=== PATIENT | male | born 2000 ===

== ENCOUNTER 2021-10-28 11:32 | Emergency (ER) | payer MEDICAID, SELFPAY ==
[2021-10-28 11:50] VITALS: BP 117/67; PULSE 57; RESP 16; TEMP 36.3; O2SAT 99; BMI 23.6
[2021-10-28] MEDS: Fluorescein Sodium STRIP 1 STRIP EYE-RIGHT (12:10)
[2021-10-28] MEDS: Tetracaine HCl/PF 0.5% Oph Sol 4 ML DROPS 3 DROP EYE-RIGHT (12:10)
--- NOTE | 2021-10-28 12:52 | ED_ITS ---
HPI - Eye Problem General Chief complaint: Eye Problems Stated complaint: scratched eye Time Seen by Provider: 10/28/21 12:01 Source: patient Mode of arrival: ambulatory History of Present Illness HPI Narrative: 21-year-old male with no significant past medical history presenting to the ED complaining of foreign body sensation to right eye with tearing, pain, and mild discharge since yesterday. 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 Denies wearing glasses or contacts. Denies vision loss/change, headache, trauma tab by/injury MD chief complaint: eye pain Onset (ago): day(s) Onset description: sudden Duration: constant Location: right eye Eye Symptoms: pain, foreign body sensation, itching, discharge and photophobia Related Data Previous Rx's Medication Instructions Recorded cyclopentolate 0.5 % eye drops 1 drp OPHTHALMIC (EYE) BID PRN 2 10/28/21 Days #15 ml polymyxin B sulfate 10,000 1 drp OPHTHALMIC (EYE) Q3H 7 Days 10/28/21 unit-trimethoprim 1 mg/mL eye ml drops (Polytrim) Allergies Allergy/AdvReac Type Severity Reaction Status Date / Time SEAFOOD Allergy Unknown ANGIOEDEMA Uncoded 03/31/20 17:32 Review of Systems Review of Systems: Constitutional:No Fever, No Chills, No Fatigue, No Malaise ENT/Mouth: No Ear Pain, No Nasal Congestion, No Sinus Pain, No Hoarseness, No sore throat, No Rhinorrhea, No Swallowing Difficulty Eyes: + Eye Pain, + Swelling, + Redness, + Foreign Body sensation, +Discharge, No Vision Changes Cardiovascular: No Chest Pain, No SOB, No Palpitations Respiratory: No Cough, No Sputum, No Dyspnea Gastrointestinal: No Nausea, No Vomiting, No Diarrhea, No Constipation, No Abdominal pain Musculoskeletal: No joint pain, No Myalgias, No Joint Swelling Skin: No Skin Lesions, No rash Neuro: No Weakness, No Headache Yes all other systems are reviewed and are negative Eyes: Eyes: Reports photophobia (to right eye) [facility] Past Medical History Attestation statement: The following information was validated with the patient. Medical History No known health problems Social History Social History Advance Directives: No Advance Directives Information Provided: No Physical Exam Vital Signs: Vital Signs: Last Vital Signs Temp 97.4 F 10/28/21 11:50 Pulse 57 10/28/21 11:50 Resp 16 10/28/21 11:50 BP 117/67 10/28/21 11:50 Pulse Ox 99 10/28/21 11:50 BMI result Body Mass Index 23.6 Const: General: cooperative, healthy appearing and no acute distress Orientation/consciousness: patient oriented x3 Limitations: no limitations HEENT: Head: Yes normal to inspection and Yes atraumatic Ears: hearing grossly normal bilaterally General nose exam: Normal external nose present Face and sinus: Yes normal facial exam Eyes: Other: Visual acuity 20/20 bilaterally + right eye tearing, pain relieved after tetracaine applied Eyelids: Yes eyelid abnormality (Mild right upper eyelid swelling) Conjunctivae: conjunctival abnormal right conjunctival chemosis, conjunctival injection and discharge; Negative for without subconjunctival hemmorhages Corneas: corneas abnormal on the right fluorescein used, abrasion central (Large) and at the following clock position (2-9 o'clock) and foreign body (some dry vaseline removed from eye) and fluorescein used EOM: EOMs intact bilaterally and EOM normal Direct Ophthalmoscopy: photophobia (to right eye) Neck: Neck: Yes normal visual inspection and Yes no meningeal signs Resp: Effort & Inspection: normal respiratory effort and no respiratory distress Auscultation: clear to auscultation bilaterally Cardio: Rate: regular rate Heart sounds: S1 normal heart sound present and S2 normal heart sound present Skin: Rashes: no rashes Wounds: no wounds Neuro: General: patient oriented x3, tone normal and no meningeal signs Gait exam (Neuro): Normal gait present Extrem: General: Yes normal to inspection MDM - Eye Problem MDM Narrative Medical decision making narrative: 21-year-old male with no significant past medical history presenting to the ED complaining of foreign body sensation to right eye with tearing, pain, and mild discharge since yesterday. On exam vital signs stable, physical exam as above, large corneal abrasion appreciated, no appreciable ulceration. Low concern for preseptal or septal cellulitis or globe rupture Discussed with patient crucial importance of following up with Ophthalmology. Sent in antibiotics and cycloplegic drops to pharmacy Differential Diagnosis Differential diagnosis: Likely corneal abrasion and conjunctivitis Medical Records Attestation: I reviewed the patient's medical records. Lab Data Attestation: I reviewed the patient's lab results. Discharge Plan Discharge Clinical Impression: Corneal abrasion Patient Disposition: Home, Self-Care Instructions: Corneal Abrasion (DC) Additional Instructions: You have a very large corneal abrasion/scratch in your eye. Polytrim are antibiotic drops Cyclopentolate will help with pain, you can apply 1 drop twice daily for 2 days It is very important that you follow up with Ophthalmology If he developed vision change, vision loss, unbearable plane please return to the ED Prescriptions: New polymyxin B sulf-trimethoprim [Polytrim] 10,000 unit- 1 mg/mL drops 1 drp ophthalmic (eye) Q3H 7 Days 0RF Rx Instructions: while awake; do not exceed 6 doses in 24 hours cyclopentolate 0.5 % drops 1 drp ophthalmic (eye) BID PRN (Reason: pain (scale score 4-6)) 2 Days Qty: 15 0RF Rx Instructions: compress lacrimal sac for 1-2 minutes after instillation Referrals: Doyle Ayala [Physician] - 2 days
== END 2021-10-28 13:09 | disposition home or self-care (01) ==
PROVIDERS: Emergency Provider Emergency Medicine; PCP Internal Medicine Geriatric Medicine
DX: S05.01XA Injury of conjunctiva and corneal abrasion without foreign body, right eye, initial encounter (principal); X58.XXXA Exposure to other specified factors, initial encounter; Y93.9 Activity, unspecified; Y92.9 Unspecified place or not applicable; Y99.9 Unspecified external cause status
CPT/HCPCS: 99283; 99284

== ENCOUNTER 2023-01-13 21:06 | Emergency (ER) | payer MEDICAID, SELFPAY ==
[2023-01-13 21:12] VITALS: BP 131/81; PULSE 77; RESP 18; TEMP 36.1; O2SAT 99; BMI 24.4
--- NOTE | 2023-01-14 01:55 | PC.NURSE ---
continues to wait for an ED provider. 2 providers made aware of pt's pain all during his lenght of stay. pt made aware of RN having notified provider staff. calm, uses urinal at bedside. ice pack provided. family at bedside. cont to monitor.
[2023-01-14] MEDS: Ibuprofen 600 MG TABLET PO (02:56)
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
[2023-01-14] MEDS: oxyCODONE HCl Immed Release 5 MG TABLET PO (03:31)
== END 2023-01-14 06:20 | disposition home or self-care (01) ==
PROVIDERS: Emergency Provider Emergency Medicine; PCP Internal Medicine Geriatric Medicine
DX: S82.491A Other fracture of shaft of right fibula, initial encounter for closed fracture (principal); S82.891A Other fracture of right lower leg, initial encounter for closed fracture; V86.56XA Driver of dirt bike or motor/cross bike injured in nontraffic accident, initial encounter; Y93.9 Activity, unspecified; Y92.9 Unspecified place or not applicable; Y99.9 Unspecified external cause status; R55 Syncope and collapse; M79.604 Pain in right leg
CPT/HCPCS: 70450; 72125; 73110; 73590; 73600; 73620; 99283; 99284

== ENCOUNTER → 2023-01-18 11:01 | Outpatient (BNVA) | payer MEDICAID, SELFPAY | PROVIDERS: PCP Internal Medicine Geriatric Medicine; Visit Provider Physician Assistant | DX: S82.891A Other fracture of right lower leg, initial encounter for closed fracture (principal) | CPT/HCPCS: 27786; 99202 ==

== ENCOUNTER 2023-01-21 10:04 | Outpatient (AMB) | payer MEDICAID, SELFPAY ==
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
== END 2023-01-21 11:39 | disposition home or self-care (01) ==
PROVIDERS: PCP Internal Medicine Geriatric Medicine; Visit Provider Orthopaedic Surgery
DX: S82.891A Other fracture of right lower leg, initial encounter for closed fracture (principal)
CPT/HCPCS: 99214

== ENCOUNTER 2023-01-21 10:21 | Outpatient (REF) | payer MEDICAID, SELFPAY ==
--- NOTE | ~2023-01-21 | XR_ITS ---
EXAMINATION: XR ANKLE, RIGHT CLINICAL INFORMATION: Pain in right ankle and joints of right foot COMPARISON: Radiographs of the ankle 01/13/2023 TECHNIQUE: Mortise and external rotation views of the right ankle. FINDINGS: Redemonstration of transversely oriented fracture at the junction of the middle and distal thirds of the fibula with lateral displacement of the distal fracture fragment by nearly one shaft width, essentially unchanged. There is widening of the medial clear space which is best visualized on external rotation view suggestive of a ligamentous injury of the ankle. XR/XR ankle RT 2V IMPRESSION: Redemonstration of transversely oriented fibular fracture. There is widening of the medial clear space suggesting ligamentous injury of the ankle.
== END 2023-01-21 10:22 | disposition home or self-care (01) ==
LOC: HO.HOSX 10:21
PROVIDERS: PCP Internal Medicine Geriatric Medicine; Visit Provider Orthopaedic Surgery
DX: S82.891A Other fracture of right lower leg, initial encounter for closed fracture (principal)
CPT/HCPCS: 73600; 99212

== ENCOUNTER 2023-01-25 09:34 | Day surgery (SDC) | payer MEDICAID, SELFPAY ==
[2023-01-25] VITALS (13 sets, daily range): BP systolic 111–148; BP diastolic 50–92; PULSE 55–76; RESP 14–20; TEMP 36.4–36.7; O2SAT 96–100; BMI 24.4
--- NOTE | ~2023-01-25 | FL_ITS ---
EXAMINATION: XR FLUOROSCOPY WITH IMAGES CLINICAL INFORMATION: Ankle ORIF, right. COMPARISON: Previous x-ray 01/21/2023 TECHNIQUE: Fluoroscopy Supervised By: Dr. Fontanez. Fluoroscopy Time: 0.8 minutes. Cumulative Dose: 3.79 mGy. DAP: 0.0658 Gycm2. Images: 4. FINDINGS: Images demonstrate fixation of the distal tibia and fibula with radiopaque band sand lateral tibial and proximal medial radiopaque buttons. There is a displaced posterior malleolar fracture that appears unchanged. The ankle mortise is normal. Medial ankle mortise widening is no longer seen. FL/FL guidance in OR IMPRESSION: Fluoroscopy guidance for right ankle surgery.
[2023-01-25] MEDS: Lactated Ringers 1,000 ML 100 ML IVCONT (10:06)
--- NOTE | 2023-01-25 10:32 | HO.ANESPROP2 ---
HPI - Anesthesia Eval Consult details Narrative: 22 yo M for ORIF right ankle. PMFSH Active Problems Active Problems: All Active Problems (Updated 01/21/23 @ 11:41 by Amos Rahman) Closed right ankle fracture (Acute) Past Medical History Medical History No known health problems Family History Family history of problems with anesthesia: No Surgical History Surgical History H/O eye surgery History of Problems with Anesthesia: No Social History Social History Alcohol intake: never Patient Tobacco Use Status: Never used Tobacco Second Hand Smoke Exposure: No Use of substances other than those prescribed or required for medical reasons: No Are you DNR?: No Advance Directives: No Advance Directives Information Provided: Yes Advance Directives on File: No Current occupational status: employed 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 Meds Allergies Allergy/AdvReac Type Severity Reaction Status Date / Time SEAFOOD Allergy Unknown ANGIOEDEMA Uncoded 03/31/20 17:32 Active Medications: Current Medications Lactated Ringer's (Lr) 1,000 mls @ 100 mls/hr IVCONT .Q10H ЮЛИЯ Last Admin: 01/25/23 10:06 Dose: 100 mls/hr Exam Exam Date and Time: January 25, 2023 1032 Height,Weight and Vital Signs: Height 5 ft 10 in Weight 77.111 kg Last Vital Signs Temp 97.6 F 01/25/23 10:00 Pulse 55 01/25/23 10:00 Resp 16 01/25/23 10:00 BP 138/81 01/25/23 10:00 Pulse Ox 100 01/25/23 10:00 O2 Del Method Room Air 01/25/23 10:00 Airway Mallampati Class: I TM Dist: >3cm Neck ROM: Full Loose/Missing/Broken Teeth: No Heart: S1S2 Lungs: CTAB Assessment and Plan Assessment Anesthesia Assessment: Anesthesia Plan Discussed and Chart Reviewed Final Anesthetic Review Family History of Problems with Anesthesia: No History of Problems with Anesthesia: No NPO: Yes ASA Class: I Final Preanesthetic Review: No Changes in Pt Med Stat, Meds/Allgs Chart Reviewed, Consent Obtained/Reviewed and Anes Risks/Benef Reviewed Patient Risk: Low Procedure Risk: Low Anesthetic Plan Anesthetic Plan: GA and Agree w/ Assess. and Plan Disposition: Standard PACU
[2023-01-25] MEDS: oxyCODONE HCl Immed Release 5 MG TABLET 10 MG PO (13:15)
[2023-01-25] MEDS: fentaNYL citrate/PF 100 MCG/2 ML VIAL 50 MCG IVPUSH ×2 (13:15→13:20)
[2023-01-25] MEDS: HYDROmorphone HCl 0.5 MG/0.5 ML SYRINGE IVPUSH ×2 (13:25→13:30)
--- NOTE | 2023-01-25 16:21 | P.BOP_ITS ---
Brief Operative Note Date of Service: 01/25/23 Pre-op diagnosis: right ankle ORIF Post-op diagnosis: same Procedure: Right sydesmosis ORIF Implants: Stephanie 2 hile plate and Arthrex tightrope x2 Surgeon: Sukhdeep Fontanez MD Anesthesia: GETA and local Was an Radiologic Electronic Specialist used for this Procedure?: No Estimated blood loss (mL): 150 IV fluids (mL): 1,000 Pathology: none sent Condition: stable Disposition: PACU
--- NOTE | 2023-02-01 15:13 | W.PM.OPN ---
Operative Note Operative Note Date of Service: 01/25/23 Narrative: Date of Service: 01/25/23 Pre-op diagnosis: right ankle ORIF Post-op diagnosis: same Procedure: Right sydesmosis ORIF Implants: [place] 2 hile plate and Arthrex tightrope x2 Surgeon: Sukhdeep Fontanez MD Anesthesia: GETA and local Was an Medical Psychotherapist used for this Procedure?: No Estimated blood loss (mL): 150 IV fluids (mL): 1,000 Pathology: none sent Condition: stable Disposition: PACU Procedure in detail: Patient was brought to the operating room and placed supine on the operative table. All bony prominences were well padded and a time-out was called to identify proper site proper procedure proper surgeon. IV antibiotics per weight were administered. I began by exsanguinating limb is slightly tourniquet to 300 mm Hg. At this point biplanar fluoroscopy was performed and it was obvious that he had a widened medial clear space and in conjunction with a high fibular fracture decision was made to reduce the syndesmosis. I made a small 3 cm incision over the fibula at the level of the syndesmosis and then a corresponding andres incision over the medial malleolus. The syndesmosis was reduced with a tenaculum and a 2 hole [place] plate was used for syndesmotic fixation with tight rope device. From lateral to medial , using standard technique, drill holes were performed in the tight rope was placed from lateral to medial. This was flipped on the medial malleolus and tightened laterally. Once I was satisfied with the position of the hardware and external rotation stress test with performed and there was no increase in medial clear space in the mortise was symmetric. Decision therefore was made to leave the very proximal fibular fracture. Of note there was a posterior malleolar fracture that was not sufficiently large to warrant fixation. All instrumentation was removed and copious irrigation was performed. Absorbable suture and parrish were used for closure and the patient was placed into sterile dressings and a well-padded posterior splint. Tourniquet was let down and the patient was extubated brought to recovery room in stable condition there were no known complications.
== END 2023-01-25 14:49 | disposition home or self-care (01) ==
PROVIDERS: PCP Internal Medicine Geriatric Medicine; Visit Provider Orthopaedic Surgery
PROC: (CPT 27829; principal; 2023-01-25 11:00)
DX: S82.891A Other fracture of right lower leg, initial encounter for closed fracture (principal); M25.571 Pain in right ankle and joints of right foot; V18.4XXA Pedal cycle driver injured in noncollision transport accident in traffic accident, initial encounter; Y93.55 Activity, bike riding; Y92.9 Unspecified place or not applicable; Y99.8 Other external cause status
CPT/HCPCS: 27829; 27766; C1713; J0690; J1100; J1170; J2250; J2405; J2795; J3010

== ENCOUNTER → 2023-01-25 09:34 | Outpatient (BNV) | payer MEDICAID, SELFPAY | PROVIDERS: PCP Internal Medicine Geriatric Medicine; Visit Provider Orthopaedic Surgery | DX: S82.62XA Displaced fracture of lateral malleolus of left fibula, initial encounter for closed fracture (principal); S82.891A Other fracture of right lower leg, initial encounter for closed fracture | CPT/HCPCS: 27792 ==

== ENCOUNTER 2023-02-08 11:36 | Outpatient (AMB) | payer MEDICAID, SELFPAY ==
--- NOTE | 2023-02-08 11:42 | MHC.OFFVIS ---
Intake Intake Visit Reasons: PO RT ankle syn. repair 01/25/23NE Intake Note: Tripp is a 22 year old male who presents today for a post op appointment s/p right ankle syn. repair 01/25/23 NE. Patient reports no pain just discomfort at the moment. Deneis numbness and tingling. Allergies SEAFOOD Allergy (Unknown, Uncoded 03/31/20 17:32) ANGIOEDEMA HPI PO RT ankle syn. repair 01/25/23NE HPI Details 22-year-old male who presents in the office today 2 weeks status post right ankle syndesmosis ORIF, which was performed on 01/25/[address] Fontanez. The patient reports no pain, only discomfort, while in the office today. He denies numbness or tingling. 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 Wang intact. No signs of infection. No surrounding erythema or drainage. Able to dorsiflex and plantarflex but is limited due to pain and edema. Sensation intact. Pedal pulse intact. Office Procedures Casting/Splints [id number] Leg splint application Procedure code (CPT) selection complete Assessment & Plan Assessment & Plan (1) Closed right ankle fracture: Comment: Right ankle syndesmosis ORIF 01/25/2023 NE Code(s): S82.891A - Other fracture of right lower leg, initial encounter for closed fracture Plan Mr. Dc Leblanc is a 22-year-old male who presents in the office today 2 weeks status post right ankle syndesmosis ORIF, which was performed on 01/25/[address] Fontanez. The patient reports no pain, only discomfort, while in the office today. He denies numbness or tingling. The wang will remain intact for an additional week. He was placed back into a custom made posterior splint. He will remain non-weight bearing. Follow up will be in 1 week with anticipation of staple removal, or sooner if needed. Patient Instructions: Scribed for Amy Aguilera PA-C by Shala Fox medical policy specialist, on 02/08/2023 at 11:51 am, EST. Your attestation Coding Level of Care Code Global (87669) Diagnoses Closed right ankle fracture S82.891A CPT Codes Splint - CPT: 23371-Rsuzz Leg splint application ([id number])
== END 2023-02-08 12:26 | disposition home or self-care (01) ==
PROVIDERS: PCP Internal Medicine Geriatric Medicine; Visit Provider Physician Assistant
DX: S82.891A Other fracture of right lower leg, initial encounter for closed fracture (principal)
CPT/HCPCS: 29515; 99024

== ENCOUNTER → 2023-02-08 11:36 | Outpatient (BNVA) | payer MEDICAID, SELFPAY | PROVIDERS: PCP Internal Medicine Geriatric Medicine; Visit Provider Physician Assistant ==

== ENCOUNTER 2023-02-12 12:35 | Outpatient (AMB) | payer MEDICAID, SELFPAY ==
--- NOTE | 2023-02-12 12:37 | MHC.OFFVIS ---
Intake Intake Visit Reasons: PO-RT ankle syn. repair 01/25/23NE Intake Note: Tripp is a 22 year old male who presents today for a post operative appointment for his right ankle syn. repair, 01/25/23 NE. Chappell removed and steris were placed. Allergies SEAFOOD Allergy (Unknown, Uncoded 03/31/20 17:32) ANGIOEDEMA HPI PO-RT ankle syn. repair 01/25/23NE HPI Details 22-year-old male who presents in the office today 2 weeks status post right ankle syndesmosis ORIF, which was performed on 01/25/[address] Fontanez. 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 No drainage or signs of infection. Able to slightly able to dorsiflex and plantarflex. Mild to moderate circumferential edema. NVI. Office Procedures Casting/Splints 46221-Ufzox Leg Cast Application Procedure code (CPT) selection complete Assessment & Plan Assessment & Plan (1) Closed right ankle fracture: Comment: Right ankle syndesmosis ORIF 01/25/2023 NE Code(s): S82.891A - Other fracture of right lower leg, initial encounter for closed fracture Plan Mr. Dc Leblanc is a 22-year-old male who presents in the office today 2 weeks status post right ankle syndesmosis ORIF, which was performed on 01/25/[address] Fontanez. The patient will be placed in a custom short leg cast while in the office today. He will remain non-weight bearing. Follow up will be in 4 weeks with x-rays, or sooner if needed. Patient Instructions: Scribed for Amy Aguilera PA-C by Shala Fox medical equipment repair technician, on 02/12/2023 at 12:37 pm, EST. Your attestation Coding Level of Care Code Global (82013) Diagnoses Closed right ankle fracture S82.891A CPT Codes Casting - CPT: 33391-Ozxqt Leg Cast Application ([id number])
== END 2023-02-12 13:29 | disposition home or self-care (01) ==
PROVIDERS: PCP Internal Medicine Geriatric Medicine; Visit Provider Physician Assistant
DX: S82.891A Other fracture of right lower leg, initial encounter for closed fracture (principal)
CPT/HCPCS: 29405; 99024

== ENCOUNTER → 2023-02-12 12:35 | Outpatient (BNVA) | payer MEDICAID, SELFPAY | PROVIDERS: PCP Internal Medicine Geriatric Medicine; Visit Provider Physician Assistant | DX: S82.891A Other fracture of right lower leg, initial encounter for closed fracture (principal) | CPT/HCPCS: 29405 ==

== ENCOUNTER 2023-03-06 13:09 | Outpatient (AMB) | payer MEDICAID, SELFPAY ==
--- NOTE | 2023-03-06 13:11 | MHC.OFFVIS ---
Intake Intake Visit Reasons: PO-RT ankle syn. repair 01/25/23NE Intake Note: Tripp is a 22 year old male who presents today for a post operative appointment for his right ankle syn. repair, 01/25/23 NE. Patient reports he would like to change his cast due to it causing him a lot of pain. Allergies SEAFOOD Allergy (Unknown, Uncoded 03/31/20 17:32) ANGIOEDEMA HPI PO-RT ankle syn. repair 01/25/23NE HPI Details 23-year-old male who presents in the office today 1 month status post right ankle syndesmosis ORIF, which was performed on 01/25/[address] Fontanez. He presents for a cast change due to his edema reducing and the cast becoming loose. 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 No surrounding erythema or drainage. No signs of infection. Office Procedures Casting/Splints 42952-Vknmu Leg Cast Application Procedure code (CPT) selection complete Assessment & Plan Assessment & Plan (1) Closed right ankle fracture: Comment: Right ankle syndesmosis ORIF 01/25/2023 NE Code(s): S82.891A - Other fracture of right lower leg, initial encounter for closed fracture Plan Mr. Dc Leblanc is a 23-year-old male who presents in the office today 1 month status post right ankle syndesmosis ORIF, which was performed on 01/25/[address] Fontanez. He presents for a cast change due to his edema reducing and the cast becoming loose. He was placed in a new custom short leg cast while in the office today. He will follow up at his regularly scheduled appointment next week, or sooner if needed. Patient Instructions: Scribed for Amy Aguilera PA-C by Shala Fox medical education coordinator, on 03/06/2023 at 1:10 pm, EST. Coding Level of Care Code Procedure Only Diagnoses Closed right ankle fracture S82.891A CPT Codes Casting - CPT: 57037-Jhfii Leg Cast Application ([id number])
== END 2023-03-06 14:20 | disposition home or self-care (01) ==
PROVIDERS: PCP Internal Medicine Geriatric Medicine; Visit Provider Physician Assistant
DX: S82.62XA Displaced fracture of lateral malleolus of left fibula, initial encounter for closed fracture (principal); S82.891A Other fracture of right lower leg, initial encounter for closed fracture; Z48.89 Encounter for other specified surgical aftercare
CPT/HCPCS: 29405; 99024

== ENCOUNTER → 2023-03-06 13:09 | Outpatient (BNVA) | payer MEDICAID, SELFPAY | PROVIDERS: PCP Internal Medicine Geriatric Medicine; Visit Provider Physician Assistant | DX: S82.891D Other fracture of right lower leg, subsequent encounter for closed fracture with routine healing (principal) | CPT/HCPCS: 29405; 99212 ==

== ENCOUNTER 2023-03-14 07:31 | Outpatient (REF) | payer MEDICAID, SELFPAY ==
--- NOTE | ~2023-03-14 | XR_ITS ---
EXAMINATION: XR ANKLE, RIGHT CLINICAL INFORMATION: Pain. COMPARISON: Prior examinations, most recently fluoroscopy dated 01/25/2023. TECHNIQUE: AP, lateral, and mortise views of the right ankle. FINDINGS: Bony mineralization is normal. A transverse fracture of the distal right fibular shaft is again seen, with approximately one half shaft width of lateral and posterior displacement of the distal fracture fragment relative to the proximal fragment. There is a mildly displaced posterior malleolar fracture again seen. No significant new callus formation is noted. Tightrope hardware is noted. The ankle mortise is relatively well-maintained. No dislocation or joint effusion is seen. Boehler's angle is normal. No calcaneal spur. No focal soft tissue swelling, gas or foreign body seen. XR/XR ankle RT min 3V IMPRESSION: There is stable alignment of mildly displaced distal fibular shaft and posterior malleolus fractures. No new callus formation is seen. Tightrope hardware is redemonstrated.
== END 2023-03-14 07:32 | disposition home or self-care (01) ==
LOC: HO.HOSX 07:31
PROVIDERS: Visit Provider Physician Assistant
DX: S82.891A Other fracture of right lower leg, initial encounter for closed fracture (principal); X58.XXXA Exposure to other specified factors, initial encounter; Y93.9 Activity, unspecified; Y92.9 Unspecified place or not applicable; Y99.9 Unspecified external cause status
CPT/HCPCS: 73610

== ENCOUNTER 2023-03-14 10:04 | Outpatient (AMB) | payer MEDICAID, SELFPAY ==
--- NOTE | 2023-03-14 10:18 | MHC.OFFVIS ---
Intake Vital Signs 03/14/23 10:24 Height 5 ft 10 in Weight 175 lb BMI 25.1 Intake Visit Reasons: PO - RT ankle syn. repair 01/25/23NE Intake Note: Tripp is a 22 year old male who presents today for a post operative appointment for his right ankle syn. repair, 01/25/23 NE. Patient reports no pain but has discomfort when cast was removed. Having numbness on the incision site since surgery. Allergies SEAFOOD Allergy (Unknown, Uncoded 03/31/20 17:32) ANGIOEDEMA HPI PO - RT ankle syn. repair 01/25/23NE HPI Details 23-year-old male who presents in the office today 6 weeks status post right ankle syndesmosis ORIF, which was performed on 01/25/[address] Fontanez. The patient reports no pain or discomfort when cast was removed while in the office today. He claims to have numbness on the incision site since surgery. 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 No ecchymosis or erythema. Mild edema. Incision site is clean, dry, and intact. No signs of infection. Able to dorsiflex and plantarflex with stiffness. Sensation intact. Pedal pulse intact. Assessment & Plan Assessment & Plan (1) Closed right ankle fracture: Comment: Right ankle syndesmosis ORIF 01/25/2023 NE Code(s): S82.891A - Other fracture of right lower leg, initial encounter for closed fracture Plan Mr. Dc Leblanc is a 23-year-old male who presents in the office today 6 weeks status post right ankle syndesmosis ORIF, which was performed on 01/25/[address] Fontanez. The patient reports no pain or discomfort when cast was removed while in the office today. He claims to have numbness on the incision site since surgery. The patient will be placed in a tall walking boot, off the shelf, while in the office today. He may begin to weight bear as tolerated. The patient will be referred to physical therapy to begin to work on ROM and strengthening of the right ankle. He will follow up in 4 weeks for a ROM check, or sooner if needed. X-rays of the right ankle which were obtained while in the office today and were reviewed by me, Amy Aguilera PA-C, revealed orthopedic hardware intact with routine healing. Orders: Orders XR ankle RT min 3V Today M25.579 - Pain in unspecified ankle and joints of unspecified foot PT Evaluation and Treatment Today S82.891A - Other fracture of right lower leg, initial encounter for closed fracture Patient Instructions: Scribed for Amy Aguilera PA-C by Shala Fox medical technologist chief, on 03/14/2023 at 10:05 am, EST. Coding Level of Care Code Global (67283) Diagnoses Closed right ankle fracture S82.891A
[2023-03-14 10:24] VITALS: BMI 25.1
== END 2023-03-14 12:12 | disposition home or self-care (01) ==
PROVIDERS: PCP Internal Medicine Geriatric Medicine; Visit Provider Physician Assistant
DX: S82.891A Other fracture of right lower leg, initial encounter for closed fracture (principal)
CPT/HCPCS: 99024

== ENCOUNTER 2023-04-11 12:42 | Outpatient (AMB) | payer MEDICAID, SELFPAY ==
[2023-04-11 12:44] VITALS: BMI 25.1
--- NOTE | 2023-04-11 12:44 | A.OFFVIS_ITS ---
Intake Vital Signs 04/11/23 12:44 Height 5 ft 10 in Weight 175 lb BMI 25.1 Intake Visit Reasons: PO - RT ankle syn. repair 01/25/23NE Intake Note: Tripp is a 23 year old male who presents today for a post operative appointment for his right ankle syn. repair, 01/25/23 NE. Patient reports having off and on discomfort. Denies numbness and tingling. Allergies SEAFOOD Allergy (Unknown, Uncoded 03/31/20 17:32) ANGIOEDEMA HPI PO - RT ankle syn. repair 01/25/23NE HPI Details 23-year-old male who presents in the off ice today 2 months status post right ankle syndesmosis ORIF, which was performed on 01/25/[address] Fontanez. The patient reports intermittent discomfort. He denies numbness or tingling. 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 No ecchymosis, erythema, or edema. Able to perform full dorsiflexion, plantarflexion, inversion, and eversion with minimal discomfort. Sensation intact. Pedal pulse intact. NVI. Assessment & Plan Assessment & Plan (1) Closed right ankle fracture: Comment: Right ankle syndesmosis ORIF 01/25/2023 NE Code(s): S82.891A - Other fracture of right lower leg, initial encounter for closed fracture Qualifiers: Encounter type: subsequent encounter Fracture healing: with routine healing Qualified Code(s): S82.891D - Other fracture of right lower leg, subsequent encounter for closed fracture with routine healing Plan Mr. Dc Leblanc is a 23-year-old male who presents in the office today 2 months status post right ankle syndesmosis ORIF, which was performed on 01/25/[address] Fontanez. The patient reports intermittent discomfort. He denies numbness or tingling. The patient will begin to wean out of the boot into a supportive sneaker with the help of physical therapy. He will continue to work with physical therapy. Follow up will be in 6 weeks, or sooner if needed. Patient Instructions: Scribed for Amy Aguilera PA-C by Shala Fox special forces medical sergeant, on 04/11/2023 at 12:44 pm, EST. Coding Level of Care Code Global (45394) Diagnoses Closed fracture of right ankle with routine healing, subsequent encounter S82.891D Encounter type: subsequent encounter Fracture healing: with routine healing
== END 2023-04-11 13:12 | disposition home or self-care (01) ==
PROVIDERS: PCP Internal Medicine Geriatric Medicine; Visit Provider Physician Assistant
DX: S82.891D Other fracture of right lower leg, subsequent encounter for closed fracture with routine healing (principal)
CPT/HCPCS: 99024

== ENCOUNTER → 2023-04-11 12:42 | Outpatient (BNVA) | payer MEDICAID, SELFPAY | PROVIDERS: PCP Internal Medicine Geriatric Medicine; Visit Provider Physician Assistant ==

== ENCOUNTER 2023-05-23 12:50 | Outpatient (AMB) | payer MEDICAID, SELFPAY ==
[2023-05-23 12:59] VITALS: BMI 25.1
--- NOTE | 2023-05-23 12:59 | MHC.OFFVIS ---
Intake Vital Signs 05/23/23 12:59 Height 5 ft 10 in Weight 175 lb BMI 25.1 Intake Visit Reasons: OV - RT ankle syn. repair 01/25/23NE Intake Note: Tripp is a 23 year old male who presents today for a post operative appointment for his right ankle syn. repair, 01/25/23 NE. Patient reports he is doing well but still has some stiffness in the morning. He states that he is back to his normal routine but when he over does it he feels a bit sore. Allergies SEAFOOD Allergy (Unknown, Uncoded 03/31/20 17:32) ANGIOEDEMA HPI OV - RT ankle syn. repair 01/25/23NE HPI Details 23-year-old male who presents in the office today 4 months status post right ankle syndesmosis ORIF, which was performed on 01/25/[address] Fontanez. The patient reports he is doing well, but still has some stiffness in the morning. He states he is back to his normal routine, but when he over does it he feels a bit sore. 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 No signs of infection. Assessment & Plan Assessment & Plan (1) Closed right ankle fracture: Comment: Right ankle syndesmosis ORIF 01/25/2023 NE Code(s): S82.891A - Other fracture of right lower leg, initial encounter for closed fracture Qualifiers: Encounter type: subsequent encounter Fracture healing: with routine healing Qualified Code(s): S82.891D - Other fracture of right lower leg, subsequent encounter for closed fracture with routine healing Plan Mr. Dc Leblanc is a 23-year-old male who presents in the office today 4 months status post right ankle syndesmosis ORIF, which was performed on 01/25/[address] Fontanez. The patient reports he is doing well, but still has some stiffness in the morning. He states he is back to his normal routine, but when he over does it he feels a bit sore. He will resume back to normal activities as tolerated. He states he had begun physical therapy and attend a few sessions, but stopped. He states he is looking to restart physical therapy. He states the office he was attending had reached out to them to schedule him for an appointment. He will contact them to resume appointments. Follow up will orthopedics will be PRN, or sooner if needed. Patient Instructions: Scribed for Amy Aguilera PA-C by Shala Fox biomedical analytical scientist, on 05/23/2023 at 1:13 pm, EST. Coding Level of Care Code Est Pt Level 3 (01771) Diagnoses Closed fracture of right ankle with routine healing, subsequent encounter S82.891D Encounter type: subsequent encounter Fracture healing: with routine healing
== END 2023-05-23 13:50 | disposition home or self-care (01) ==
PROVIDERS: PCP Internal Medicine Geriatric Medicine; Visit Provider Physician Assistant
DX: S82.891D Other fracture of right lower leg, subsequent encounter for closed fracture with routine healing (principal)
CPT/HCPCS: 99213

== ENCOUNTER → 2023-05-23 12:50 | Outpatient (BNVA) | payer SELFPAY | PROVIDERS: PCP Internal Medicine Geriatric Medicine; Visit Provider Physician Assistant | DX: S82.891D Other fracture of right lower leg, subsequent encounter for closed fracture with routine healing (principal) | CPT/HCPCS: 99212 ==

== ENCOUNTER 2024-03-21 00:47 | Emergency (ER) | payer MEDICAID, SELFPAY ==
[2024-03-21 00:49] VITALS: BP 120/63; PULSE 82; RESP 20; TEMP 36.1; O2SAT 94; BMI 25.1
--- NOTE | 2024-03-21 00:54 | ED_ITS ---
HPI - General Adult General Chief complaint: Allergic Reaction Stated complaint: allergic reaction Time Seen by Provider: 03/21/24 00:51 History of Present Illness ED Provider: Yecenia NICOLE narrative: The patient is a 24-year-old male who was eating octopus. Developed symptoms of facial swelling and a sense of his throat tightening. It seemed obvious he was having an allergic reaction. He came to the emergency department. He says that he has a remote history of a seafood allergy. Related Data Previous Rx's ?Medication ?Instructions ?Recorded oxycodone 5 mg tablet 5 mg PO Q4H PRN pain 7 days #42 01/25/23 tabs epinephrine 0.3 mg/0.3 mL 0.3 mg (0.3 mL) IM ONCE PRN 03/21/24 injection, auto-injector anaphylaxis #2 ea Allergies Allergy/AdvReac Type Severity Reaction Status Date / Time SEAFOOD Allergy Unknown ANGIOEDEMA Uncoded 03/21/24 01:14 Review of Systems Review of Systems: Yes all other systems are reviewed and are negative PMFSH Past Medical History Medical History No known health problems Surgical History H/O eye surgery Social History Social History Alcohol intake: never Patient Tobacco Use Status: Never used Tobacco Smoked in Last 30 Days: No Second Hand Smoke Exposure: No Use of substances other than those prescribed or required for medical reasons: No Any prior treatment program specific to substance use: No Advance Directives: No Advance Directives Information Provided: Yes Do you have a plan to hurt others: No Plan Current occupational status: employed 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 He was awake and alert. He had facial edema. He did not seem in acute respiratory distress. HENMT Other: There was puffiness to the tissues around the eyes and the lips. No intraoral swelling. Eyes Other: There was puffiness to the periorbital skin. The eyes themselves seemed unremarkable and normal. Neck Other: No stridor Resp Other: No shin wheezes Effort & Inspection: normal respiratory effort Auscultation: clear to auscultation bilaterally Cardio Rate: regular rate Rhythm: regular rhythm Heart sounds: S1 normal heart sound present and S2 normal heart sound present GI Other: Abdomen soft and nontender. Skin Other: there is puffiness to the skin of the face. No shin urticaria. Neuro Other: The patient was awake and alert. He had a mildly apprehensive demeanor but was pleasant and cooperative and otherwise nontoxic. Cranial nerves are grossly intact. He moves his extremities normally. He seems grossly neurologically intact. Extrem Other: No swelling of the extremities. Medications Administered Discontinued Medications Generic Name Dose Route Start Last Admin Trade Name Freq PRN Reason Stop Dose Admin Diphenhydramine HCl 25 mg 03/21/24 00:53 03/21/24 01:03 Diphenhydramine Hcl 50 Mg/Ml Vial IVPUSH 03/21/24 00:54 25 mg ONCE ONE Administration Epinephrine 0.3 mg 03/21/24 00:53 03/21/24 01:02 Epinephrine 1 Mg/Ml Vial IM 03/21/24 00:54 0.3 mg STAT STA Administration Famotidine 40 mg 03/21/24 00:53 03/21/24 01:08 Famotidine 20 Mg Tablet PO 03/21/24 00:54 40 mg ONCE ONE Administration Medical Decision Making Medical Decision Making [facility] Narrative: The patient is very pleasant and ordinarily healthy 24-year-old who presents with allergic symptoms after eating octopus. He has facial edema and a sense of his breathing being somewhat tight although he has no stridor or shin wheezes. He was treated with your 0.3 mg of IM epinephrine as well as 25 mg of IV diphenhydramine and 40 mg of oral famotidine. he was observed for a couple of hours. He had symptomatic improvement. Ultimately I felt he was well enough for discharge. He will be discharged with a prescription for an EpiPen. He should avoid seafood. He should follow up with his PCP and consider a referral to an advertisement distributor. 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 Please plan on following up with your regular doctor to discuss this further and possibly get referred to an advertisement distributor. In the meantime I recommend that you avoid seafood. I have sent a prescription for an EpiPen to your pharmacy. It would be good to keep this with you at all times in case you accidentally eat seafood. If you have any mild residual symptoms in the next day or two you may use Benadryl. Return to the emergency room if you feel significantly worse. Prescriptions: New epinephrine 0.3 mg/0.3 mL auto-injector 0.3 mg IM ONCE PRN (Reason: anaphylaxis) Qty: 2 0RF Rx Instructions: for 2 doses No Action oxycodone 5 mg tablet 5 mg PO Q4H PRN (Reason: pain) 7 Days Qty: 42 0RF Rx Instructions: Partial Fill upon patient request. Interventions: ED Discharge Assessment Last Done: 03/21/24 03:04 Discharge Date/Time: 03/21/24 03:04 Print Language: Maldivian
[2024-03-21 01:02] VITALS: BP 120/63; PULSE 72
[2024-03-21] MEDS: EPINEPHrine 1 MG/ML VIAL 0.3 MG IM (01:02)
[2024-03-21] MEDS: diphenhydrAMINE HCL 50 MG/ML VIAL 25 MG IVPUSH (01:03)
[2024-03-21] MEDS: Famotidine 20 MG TABLET 40 MG PO (01:08)
[2024-03-21 03:00] VITALS: BP 106/69; PULSE 52; RESP 14; TEMP 36.6; O2SAT 99
[2024-03-21 03:04] VITALS: BP 106/69; PULSE 52; RESP 14; TEMP 36.6; O2SAT 99
== END 2024-03-21 03:04 | disposition home or self-care (01) ==
PROVIDERS: Emergency Provider Emergency Medicine
DX: T78.03XA Anaphylactic reaction due to other fish, initial encounter (principal)
CPT/HCPCS: 96372; 96374; 99284; J0171; J1200

== ENCOUNTER 2024-05-31 12:15 | Emergency (ER) | payer MEDICAID, SELFPAY ==
--- NOTE | ~2024-05-31 | XR_ITS ---
EXAMINATION: XR CHEST CLINICAL INFORMATION: Left lower rib pain following injury. COMPARISON: None available. TECHNIQUE: 2 views of the chest were obtained. FINDINGS: The lungs are clear. The cardiomediastinal silhouette is normal in size. There is no pleural effusion or pneumothorax. No acute osseous abnormality. XR/XR chest 2V IMPRESSION: No acute cardiopulmonary findings. Electronically signed by: Tae Carl MD 05/31/2024 01:52 PM [facility] [place]
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
[2024-05-31 12:45] VITALS: BP 115/57; PULSE 62; RESP 18; TEMP 36.6; O2SAT 98; BMI 24.8
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
[2024-05-31 14:24] VITALS: BP 115/57; PULSE 62; RESP 18; TEMP 36.6; O2SAT 98
== END 2024-05-31 14:24 | disposition home or self-care (01) ==
PROVIDERS: Emergency Provider Emergency Medicine; PCP Internal Medicine Geriatric Medicine
DX: S20.212A Contusion of left front wall of thorax, initial encounter (principal); S60.221A Contusion of right hand, initial encounter; R07.89 Other chest pain; X58.XXXA Exposure to other specified factors, initial encounter; Y93.89 Activity, other specified; Y92.89 Other specified places as the place of occurrence of the external cause; Y99.8 Other external cause status
CPT/HCPCS: 71046; 73110; 73130; 99282; 99283

== ENCOUNTER 2025-01-09 02:58 | Emergency (ER) | payer MEDICAID, OTHER, SELFPAY ==
--- NOTE | ~2025-01-09 | CT_ITS ---
CLINICAL HISTORY: Blunt Head Trauma CT head without contrast Comparison: None provided Findings: No intra-axial mass, midline shift, hydrocephalus, or acute hemorrhage. No significant atrophy-like change or white matter disease. There is no sinus or mastoid fluid. The orbits are unremarkable. There is no acute fracture. Left temporal scalp edema. IMPRESSION: 1. No acute intracranial findings. This document has been electronically signed by: Oleg Turner MD on 01/09/2025 05:42:47
--- NOTE | ~2025-01-09 | CT_ITS ---
CLINICAL HISTORY: Right Neck Pain; Blunt Trauma CT cervical spine without contrast Comparison: CT/CA/SR - CT CERVICAL SPINE WO IV CON - 01/14/2023 03:37 AM EDT Findings: Normal vertebral body alignment. No significant degenerative change. No acute fractures or dislocations. No acute findings on limited view of the intracranial contents. Soft tissues of the neck are normal. Lung apices are clear. IMPRESSION: No acute findings. This document has been electronically signed by: Oleg Turner MD on 01/09/2025 05:43:42
[2025-01-09 03:00] VITALS: BP 142/92; PULSE 93; RESP 20; TEMP 37.1; O2SAT 96; BMI 25.8
[2025-01-09 03:13] VITALS: BP 137/64; PULSE 93; RESP 18; TEMP 36.6; O2SAT 98
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
[2025-01-09] MEDS: Acetaminophen 325 MG TABLET 975 MG PO (03:42)
[2025-01-09] MEDS: Ibuprofen 600 MG TABLET PO (03:43)
[2025-01-09] MEDS: Diphth,Pertus(ACell),Tet Adult 0.5 ML SYRINGE IM (03:43)
[2025-01-09 06:31] VITALS: BP 137/64; PULSE 93; RESP 18; TEMP 36.6; O2SAT 98
== END 2025-01-09 06:31 | disposition home or self-care (01) ==
PROVIDERS: Emergency Provider Emergency Medicine; PCP Internal Medicine Geriatric Medicine
DX: S01.01XA Laceration without foreign body of scalp, initial encounter (principal); S13.4XXA Sprain of ligaments of cervical spine, initial encounter; M54.2 Cervicalgia; R51.9 Headache, unspecified; X99.0XXA Assault by sharp glass, initial encounter; Y93.9 Activity, unspecified; Y92.9 Unspecified place or not applicable; Y99.8 Other external cause status; Z23 Encounter for immunization
CPT/HCPCS: 12002; 70450; 72125; 90471; 90715; 99283; 99284

== ENCOUNTER → 2025-01-09 03:48 | Outpatient (BNV) | payer SELFPAY | PROVIDERS: Emergency Provider Emergency Medicine; PCP Internal Medicine Geriatric Medicine; Visit Provider Radiology Vascular & Interventional Radiology | DX: G89.11 Acute pain due to trauma (principal) | CPT/HCPCS: 70450; 72125 ==

== ENCOUNTER 2025-01-16 16:37 | Emergency (ER) | payer SELFPAY ==
[2025-01-16 16:37] VITALS: BP 125/54; PULSE 56; RESP 18; TEMP 36.4; O2SAT 98; BMI 27.0
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
--- OUTSIDE RECORDS SUMMARY | 2025-01-16 16:44 | XMS_ITS | Clinical Summary ---
[facility] [address] [place] [address] Care Team Providers Care Certified Hyperbaric Technologist Name Role Phone Unavailable Primary Care Provider Unavailabl e Social History Tobacco Use Types Packs/Day Years Used Date Smoking Tobacco: Never Assessed Sex and Gender Information Value Date Recorded Sex Assigned at Not on file Legal Sex Male 3:44 PM EDT Gender Identity Not on file Sexual Orientation Not on file Plan of Treatment Health Maintenance Due Date Last Done Comments HPV Vaccines (1 - Male 3-dos e series) 2013 DTaP,Tdap,and Td Vaccines (1 - Tdap) 2017 Hepatitis B Vaccines (1 of 3 - 19+ 3-dose series) 2017 COVID-19 Vaccine ( - 2023-2 5 season) 2024 Depression Screening 05/10/2024 HIV Screening 05/10/2024 Hepatitis C Screening 05/10/2024 Social Influencers of Health Screening 05/10/2024 Influenza Vaccine (Season Ended) 2025 HIB Vaccines Aged Out No longer eligi ble based on patient's age to complete this topic Hepatitis A Vaccines Aged Out No long er eligible based on patient's age to complete this topic IPV Vaccines Aged Out No longer eligi ble based on patient's age to complete this topic MMR Vaccines Aged Out No longer eligi ble based on patient's age to complete this topic Meningococcal ACWY Vaccine Aged Out N o longer eligible based on patient's age to complete this topic Meningococcal B Vaccine Aged Out No l onger eligible based on patient's age to complete this topic Pneumococcal Vaccine: Pediat rics (0 to 5 Years) and At-Risk Patients (6 to 64 Years) Aged Out No longer eligible b ased on patient's age to complete this topic RSV Immunization Patients Un jose 20 months Aged Out No longer eligible b ased on patient's age to complete this topic Varicella Vaccines Aged Out No longer eligible based on patient's age to complete this topic
[2025-01-16 17:01] VITALS: BP 125/54; PULSE 56; RESP 18; TEMP 36.4; O2SAT 98
== END 2025-01-16 17:01 | disposition home or self-care (01) ==
PROVIDERS: Emergency Provider Emergency Medicine; PCP Internal Medicine Geriatric Medicine
DX: Z48.02 Encounter for removal of sutures (principal)
CPT/HCPCS: 99282

== ENCOUNTER 2025-05-10 15:38 | Emergency (ER) | payer MEDICAID, OTHER, SELFPAY ==
--- NOTE | ~2025-05-10 | XR_ITS ---
EXAMINATION: XR RIBS, LEFT CLINICAL INFORMATION: pain, injury COMPARISON: None available. TECHNIQUE: 3 views of the left ribs were obtained. FINDINGS: Lungs are clear. No consolidation, pneumothorax, or pleural effusion. The cardiomediastinal silhouette and pulmonary vasculature are normal. Osseous structures are unremarkable. Ribs are intact. No fractures are identified. XR/XR ribs LT min 3V w CXR1V IMPRESSION: Unremarkable chest examination. Electronically signed by: Gordon Cortes MD 05/10/2025 04:23 PM EDT
--- NOTE | 2025-05-10 15:53 | ED_ITS ---
HPI - General Adult General Chief complaint: General Medical Stated complaint: Injury Time Seen by Provider: 05/10/25 17:46 Source: patient Mode of arrival: ambulatory Limitations: no limitations History of Present Illness ED Provider: Bonny Dejesus PA-C HPI narrative: Patient is a 25 year old assigned male at with no reported medical history presenting to the emergency department today with left rib pain. 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 Patient denies any other compla ints at this time. Related Data Previous Rx's ?Medication ?Instructions ?Recorded oxycodone 5 mg tablet 5 mg PO Q4H PRN pain 7 days #42 01/25/23 tabs epinephrine 0.3 mg/0.3 mL 0.3 mg (0.3 mL) IM ONCE PRN 03/21/24 injection, auto-injector anaphylaxis #2 ea lidocaine 5 % topical patch 1 patch topical DAILY #15 ea 05/31/24 Allergies Allergy/AdvReac Type Severity Reaction Status Date / Time SEAFOOD Allergy Unknown ANGIOEDEMA Uncoded 05/10/25 15:56 Review of Systems Constitutional: Constitutional: Reports as per HPI Eyes: Eyes: Reports as per HPI ENT: Reports as per HPI Cardiovascular: Cardiovascular: Reports as per HPI Respiratory: Respiratory: Reports as per HPI Gastrointestinal: Gastrointestinal: Reports as per HPI Genitourinary: Genitourinary: Reports as per HPI Musculoskeletal: Musculoskeletal: Reports as per HPI Integumentary/Breasts: Skin/Breast: Reports as per HPI Neurologic: Reports as per HPI Psychiatric: Psychiatric: Reports as per HPI Endocrine: Endocrine: Reports as per HPI Hematologic/Lymphatic: Hematologic/Lymphatic: Reports as per HPI Allergic/Immunologic: Allergic/Immunologic: Reports as per HPI PMFSH Past Medical History Attestation statement: The following information was validated with the patient. 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 Physical Exam ED Vital Signs: Vital Signs - 24 hr 05/10/25 15:55 05/10/25 18:01 Temperature 98.4 F 98.4 F Pulse Rate 46 L 46 L Respiratory Rate 16 16 Blood Pressure 122/57 L 122/57 L Pulse Oximetry 99 99 Oxygen Delivery Method Room Air Room Air BMI result Body Mass Index 26.1 Const General: cooperative, no acute distress, alert and awake Nutritional Appearance: well nourished Orientation/consciousness: patient oriented x3 HENMT Head: Yes normal to inspection and Yes atraumatic Ears: hearing grossly normal bilaterally and external ears normal General nose exam: Normal external nose present, no nasal discharge noted and no epistaxis Face and sinus: Yes normal facial exam, No abrasion and No laceration Mouth: Normal oral and palatal mucosa present, no drooling and no muffled voice Eyes General: appearance normal, both eyes and all related structures Periorbital: periorbital findings normal Eyelids: Yes eyelids normal Conjunctivae: conjunctivae normal Pupils: Equal, round and reactive pupils present EOM: EOMs intact bilaterally Neck Neck: Yes normal visual inspection and Yes full ROM Resp Effort & Inspection: normal respiratory effort and able to speak in complete sentences Neuro General: patient oriented x3, moves all extremities and CN's II-XI intact bilaterally Cranial nerves: Yes Equal, round and reactive pupils present Cognition (Neuro): normal cognition Extrem General: Yes normal to inspection, Yes full ROM and Yes capillary refill normal Psych Appearance: grossly normal Mental Status: mental status grossly normal Affect: normal affect Attitude: cooperative Thought process: Normal thought process present Thought content: Normal thought content present Insight: Good insight present (Psych) Course Course Course Narrative: Rapid medical examination performed in triage by Bonny Dejesus PA-C. Patient is a 25 year old assigned male at presenting to the emergency department with left lower rib pain. 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 Detailed physical exam and review of systems are deferred to the rn clinician. Imaging ordered. Patient placed back in the waiting room pending room availability and results. Medical Decision Making Medical Decision Making MDM Narrative: Patient is a 25 year old assigned male at with no reported medical history presenting to the emergency department today with left rib pain. Patient's physical exam was as noted in the physical exam portion of this note. Patient's left ribs x-ray showed no acute process. Patient's examination is most consistent with a left rib contusion / injury. I am suspicious the patient injured his cartilage in the left lower ribs. I explained my physical exam findings as well as all test results to the patient. I answered all questions asked by the patient. I stressed the importance of the patient taking his medication as directed (either prescribed or as the over the counter packaging recommends). I stressed the importance of the patient following up with his primary care provider. I stressed the importance of the patient returning to the emergency department immediately if his symptoms were to worsen or if he were to develop any dizziness, shortness of breath, difficulty breathing, chest pain, blurry vision, loss of vision, nausea, vomiting, abdominal pain, fever, chills, back pain, or any other complaints. Patient verbalized agreement and understanding with this treatment plan and discharge. Differential Diagnosis Differential Diagnoses: The differential diagnosis associated with the presentation includes Left rib pain Left rib contusion Left rib fracture Admission/Observation Consideration of admission/observation: Escalation of care including admission/observation considered Patient would have been admitted to the hospital had his work up had any findings where hospital admission was appropriate and his clinical presentation warranted hospital admission. Independent Interpretation I performed an independent interpretation of an: Plain X-Ray Interpretation: My interpretation is in agreement with the radiologist's impression of this imaging study. EXAMINATION: XR RIBS, LEFT CLINICAL INFORMATION: pain, injury COMPARISON: None available. TECHNIQUE: 3 views of the left ribs were obtained. FINDINGS: Lungs are clear. No consolidation, pneumothorax, or pleural effusion. The cardiomediastinal silhouette and pulmonary vasculature are normal. Osseous structures are unremarkable. Ribs are intact. No fractures are identified. XR/XR ribs LT min 3V w [id number] IMPRESSION: Unremarkable chest examination. Electronically signed by: Gordon Cortes MD 05/10/2025 04:23 PM EDT RP Dictated By: Gordon Cortes MD Signed By: Electronically signed by Gordon Cortes MD 05/10/25 2778 Radiology Impression Discussion of test interpretation with radiology: I have reviewed the radiologist's reading. Discharge Plan Discharge Clinical Impression: Pain in rib Patient Disposition: Home, Self-Care Additional Instructions: Your left rib x-ray was unremarkable - no evidence of break / fracture. Avoid rotating movements for the next 2 weeks as best you can. Take ibuprofen + tylenol for pain. IF you are prescribed home medications and/or you are taking over the counter medications at home - it is very important you continue to do so as prescribed / directed unless told otherwise. Follow up with your primary care provider. Return to the emergency department immediately if your symptoms worsen or if you develop any numbness, tingling, dizziness, shortness of breath, difficulty breathing, chest pain, blurry vision, loss of vision, nausea, vomiting, abdominal pain, fever, chills, back pain, or any other complaints. Please see the information below about our Patient Portal. If you are not yet enrolled in the [facility] Patient Portal, you will receive an enrollment email invitation following your visit to any [facility] care setting. You may also self-enroll in the Patient Portal by visiting our website: [email or web address] The following information is required to access the Patient Portal: - Your [facility] Medical Record Number - Your personal home email address (must match what is in your electronic medical record, Registration staff can assist with this) - Name - Date of Capabilities of the Patient Portal: - Message some providers - View upcoming appointments - Access your health summary, medical history, and visit history - View current conditions and allergies - View procedure and lab results - View your medications, including guidelines, side effects, and precautions - Complete pre-appointment questionnaires requested by your provider - Ready summary reports of your office visits and procedures To access the Patient Portal Mobile Birgit, follow these directions: - Search [employer] in the Birgit Store or Google Play Store - Download the Birgit - Search for [facility] - Enter your login/password Prescriptions: No Action epinephrine 0.3 mg/0.3 mL auto-injector 0.3 mg IM ONCE PRN (Reason: anaphylaxis) Qty: 2 0RF Rx Instructions: for 2 doses lidocaine 5 % adhesive patch,medicated 1 patch topical DAILY Qty: 15 0RF Rx Instructions: leave on most painful area for up to 12 hrs oxycodone 5 mg tablet 5 mg PO Q4H PRN (Reason: pain) 7 Days Qty: 42 0RF Rx Instructions: Partial Fill upon patient request. Referrals: Name,MD Kaveh [Primary Care Provider, Internal Medicine] Interventions: ED Discharge Assessment Last Done: 05/10/25 18:01 Discharge Date/Time: 05/10/25 18:01 Print Language: South African
[2025-05-10 15:55] VITALS: BP 122/57; PULSE 46; RESP 16; TEMP 36.9; O2SAT 99; BMI 26.1
[2025-05-10 18:01] VITALS: BP 122/57; PULSE 46; RESP 16; TEMP 36.9; O2SAT 99
--- OUTSIDE RECORDS SUMMARY | 2025-05-10 19:27 | XMS_ITS | Clinical Summary ---
Author Organization [employer] Address [address] [facility] [address] [place] [address] Care Team Providers Care Crew Caller Name Role Phone InezAfia egan Primary Care Provider [phone] Allergies No known active allergies Medications cyclobenzaprine (Flexeril) 10 MG tabletIndicatio ns:Rib pain,Contusion of rib on right side, initial encounter Take 1 tablet (10 mg) by mouth 3 times daily for 10 days. 30 tablet 5 Active lidocaine (Lidoderm) 5 % patchIndication s:Rib pain,Contusion of rib on right side, initial encounter Apply 1 patch topically Once per day. Remove & discard patch within 12 hours or as directed by MD. 30 patch 1 5 Active Active Problems Problem Noted Date Diagnosed Date Rib pain 07/22/2024 Contusion of rib on right side 07/22/2024 Assessment & Plan (07/22/2024 2:58 PM EST): I advised to rest and put training on hold until he is completely recover I recommended incentive spirometry daily at home I will prescribe ibuprofen + flexeril + lidocaine patch ED precautions reviewed with patient Blurring of visual image 03/03/2018 Allergic rhinitis 05/23/2012 Idiopathic scoliosis 05/23/2012 Encounters Date Type Department Care Team Description 05/10/2025 Orders Only [facility] External Provider, [facility] from Last 3 Months Social History Tobacco Use Types Packs/Day Years Used Date Smoking Tobacco: Never Passive Smoke Exposure: Never Smokeless Tobacco: Never Tobacco Cessation:Counseling Given: Not Answered Sex and Gender Information Value Date Recorded Sex Assigned at Male 05/14/2022 10:19 AM EDT Legal Sex Male 10:19 AM EDT Gender Identity Male 05/14/2022 10:19 AM EDT Sexual Orientation Straight 05/14/2022 10 :19 AM EDT Last Filed Vital Signs Vital Sign Reading Time Taken Comments Blood Pressure 110/80 07/22/2024 10:43 AM EST Pulse 50 07/22/2024 10:43 AM EST Temperature 35 C (95 F) 07/22/2024 10:43 AM EST Respiratory Rate 16 07/22/2024 10:43 AM EST Oxygen Saturation - - Inhaled Oxygen Concentration - - Weight 82.6 kg (182 lb 2 oz) 07/22/2024 10:43 AM EST Height 175.3 cm (5' 9 ) 07/22/2024 10:43 AM EST Body Mass Index 26.9 07/22/2024 10:43 AM EST Plan of Treatment Health Maintenance Due Date Last Done Comments Depression Screening 1998 SDOH Screening 1998 Disability Screening 1998 Alcohol/Substance Use Screening 2010 HPV Vaccines (2 - Male 2-dose series) 11/20/2012 05/23/2012 Family Planning (PISQ) 2013 COVID-19 Vaccine ( season) 2025 Influenza Vaccine (#1) 2025 04/18/2017, 2011 Tobacco Screening 07/22/2025 07/22/2024 DTaP/Tdap/Td Vaccines (9 - Td or Tdap) 01/09/2035 01/09/2025, 01/27/2022, 01/12/2019, Additional history exists Zoster Vaccines (1 of 2) 02/26/2048 RSV Patients and Patients Aged 60 years or older (1 - 1-dose 75+ series) 2073 HIB Vaccines Completed 02/06/2003 Hepatitis B Vaccines Completed 08/28/2003, 03/29/2003, 02/06/2003 IPV Vaccines Completed 03/20/2007, 03/15, 02/06/2003, Additional history exists Meningococcal Vaccine Aged Out 05/23/2012 No bren antony eligible based on patient's age to complete this topic HIV Screening Completed 10/11/2020 Hepatitis C Screening Completed 10/11/2020 Hepatitis A Vaccines Aged Out No long er eligible based on patient's age to complete this topic Meningococcal B Vaccine Aged Out No l onger eligible based on patient's age to complete this topic Pneumococcal Vaccine: Pediatrics (0 to 5 Years) and At-Risk Patients (6 to 49) Years Aged Out No longer eligible based on patient's age to complete this topic RSV under 20 months Aged Out No longe r eligible based on patient's age to complete this topic Rotavirus Vaccines Aged Out No longer eligible based on patient's age to complete this topic Procedures Procedure Name Priority Date/Time Associated Diagnosis Comments XR RIBS 3 VIEWS LEFT W CHEST Routine 05/10/2025 4:00 PM EDT ZZZ HISTORICAL HEPATITIS C AB W/REFL TO HCV RNA, QN, PCR Routine 10/11/2020 3:48 PM EDT HIV 1/2 ANTIGEN/ANTIBODY, FOURTH GENERATION W/RFL Routine 10/11/2020 3:48 PM EDT from Last 3 Months or Most Recently Relevant to Health Maintenance Results * XR Ribs 3 Views Left w/ Chest (05/10/2025 4:00 PM EDT) Anatomical Region Laterality Modality Radiographic Cecile ging 05/10/2025 4:00 PM EDT Narrative 05/10/2025 4:26 PM EDT [place] [address] XRay Report Signed Patient: Tripp Hoskins MR#: [id number] : 2000 Acct:[id number] Age/Sex: 25 / M ADM Date: 05/10/25 Loc: HO.ED Attending Dr: Ordering Physician: Bonny Dejesus Date of Service: 05/10/25 Procedure(s): XR ribs LT min 3V w CXR1V Accession Number(s): [id number] cc: Bonny Dejesus; Name,Kaveh GUERRERO Reason for Exam: pain, injury EXAMINATION: XR RIBS, LEFT CLINICAL INFORMATION: pain, injury COMPARISON: None available. TECHNIQUE: 3 views of the left ribs were obtained. FINDINGS: Lungs are clear. No consolidation, pneumothorax, or pleural effusion. The cardiomediastinal silhouette and pulmonary vasculature are normal. Osseous structures are unremarkable. Ribs are intact. No fractures are identified. XR/XR ribs LT min 3V w CXR1V IMPRESSION: Unremarkable chest examination. Electronically signed by: Gordon Cortes MD 05/10/2025 04:23 PM EDT RP Dictated By: Gordon Cortes MD Signed By: <Electronically signed by Gordon Cortes MD in OV> 05/10/25 1623 DD/ 1600 TD/TT: 05/10/25 1610 [employer] Supervisor: AMADO Procedure Note Donotuseinterpreter, Image - 05/10/2025 [place] [address] XRay Report Signed Patient: Bernardo Hoskins#: [id number] : 2000Acct:[id number] Age/Sex: Date: 05/10/25 Loc: .ED Attending Dr: Ordering Physician: Bonny Dejesus Date of Service: 05/10/25 Procedure(s): XR ribs LT min 3V w CXR1V Accession Number(s): [id number] cc: Bonny Dejesus; Name,Kaveh GUERRERO Reason for Exam: pain, injury EXAMINATION: XR RIBS, LEFT CLINICAL INFORMATION: pain, injury COMPARISON: None available. TECHNIQUE: 3 views of the left ribs were obtained. FINDINGS: Lungs are clear. No consolidation, pneumothorax, or pleural effusion. The cardiomediastinal silhouette and pulmonary vasculature are normal. Osseous structures are unremarkable. Ribs are intact. No fractures are identified. XR/XR ribs LT min 3V w CXR1V IMPRESSION: Unremarkable chest examination. Electronically signed by: Gordon Cortes MD 05/10/2025 04:23 PM EDT RP Dictated By: Gordon Cortes MD Signed By: <Electronically signed by Gordon Cortes MD in OV> 05/10/25 1623 DD/ 1600 TD/TT: 05/10/25 1610 [employer] Supervisor: AMADO [facility] External Provider IMG XR PROCEDURES Final Result * HEPATITIS C AB W/REFL TO HCV RNA, QN, PCR (10/11/2020 3:48 PM EDT) HEPATITIS C ANTIBODY NON-REACT CYNTHIA NON-REACT CYNTHIA [facility] INDEX 0.03 <1.00 [facility] Comment: HCV antibody was non-reactive. There is no laboratory evidence of HCV infection. In most cases, no further action is required. However, if recent HCV exposure is suspected, a test for HCV RNA (test code 37116) is suggested. For additional information please refer to http://Sentisis/faq/GTG19r8 (This link is being provided for informational/ educational purposes only.) 10/11/2020 3:48 PM EDT Donny Reddy MD HISTORICAL/NON ORDERA BLE LABS Final Result [facility] [address] * HIV 1/2 ANTIGEN/ANTIBODY,FOURTH GENERATION W/RFL (10/11/2020 3:48 PM EDT) HIV-1/2 ANTIGEN AND ANTIBODIES, 4TH GENERATION W/ REFLEX NON-REACT [facility] NON-REACT [facility] Comment: HIV-1 antigen and HIV-1/HIV-2 antibodies were not detected. There is no laboratory evidence of HIV infection. PLEASE NOTE: This information has been disclosed to you from records whose confidentiality may be protected by state law. If your state requires such protection, then the state law prohibits you from making any further disclosure of the information without the specific written consent of the person to whom it pertains, or as otherwise permitted by law. A general authorization for the release of medical or other information is NOT sufficient for this purpose. For additional information please refer to http://[employer]ler miniDaT.Figgu.com/faq/EKV627 (This link is being provided for informational/ educational purposes only.) The performance of this assay has not been clinically validated in patients less than 2 years old. 10/11/2020 3:48 PM EDT us Donny Reddy MD LAB BLOOD ORDERABLES Final Result [facility] [address] from Last 3 Months or Most Recently Relevant to Health Maintenance Care Teams Crew Caller Relationship Specialty Start Date End Date Afia Littlejohn DO [address] [place] [id number] PCP - General Family Medicine 03/24/24
--- OUTSIDE RECORDS SUMMARY | 2025-05-10 19:27 | XMS_ITS | Clinical Summary ---
Author Organization [facility] Address [address] [place] [address] Care Team Providers Care Screener And Blender Name Role Phone Unavailable Primary Care Provider Unavailabl e Social History Tobacco Use Types Packs/Day Years Used Date Smoking Tobacco: Never Assessed Sex and Gender Information Value Date Recorded Sex Assigned at Not on file Legal Sex Male 3:44 PM EDT Gender Identity Not on file Sexual Orientation Not on file Plan of Treatment Health Maintenance Due Date Last Done Comments DTaP,Tdap,and Td Vaccines (1 - Tdap) 2017 Hepatitis B Vaccines (1 of 3 - 19+ 3-dose series) 2017 HIV Screening 05/10/2024 Hepatitis C Screening 05/10/2024 Social Influencers of Health Screening 05/10/2024 Depression Screening 07/15/2024 HPV Vaccines (1 - 3-dose SCD M series) 2025 COVID-19 Vaccine ( - 2023-2 5 season) 2025 Influenza Vaccine (#1) 2025 RSV Immunization Adult Patie nts (1 - 1-dose 75+ series) 2073 HIB Vaccines Aged Out No longer eligi [...] 5 Years) and At-Risk Patients (6 to 49 Years) Aged Out No longer eligible b ased on patient's age to complete this topic RSV Immunization Patients Un jose 20 months Aged Out No longer eligible b ased on patient's age to complete this topic Varicella Vaccines Aged Out No longer eligible based on patient's age to complete this topic
--- OUTSIDE RECORDS SUMMARY | 2025-05-10 19:27 | XMS_ITS | Encounter Summary ---
Author Organization [employer] Address [address] [place] [address] [address] [place] [address] Care Team Providers Care Manager Small Business Name Role Phone Afia Littlejohn DO Primary Care Provider [phone] Encounter Details Date Type Department Care Team (Late st Contact Info) Description 05/10/2025 Orders Only [facility] External Provider, [facility] Social History Tobacco Use Types Packs/Day Years Used Date Smoking Tobacco: Never Passive Smoke Exposure: Never Smokeless Tobacco: Never Sex and Gender Information Value Date Recorded Sex Assigned at Male 05/14/2022 10:19 AM EDT Legal Sex Male 10:19 AM EDT Gender Identity Male 05/14/2022 10:19 AM EDT Sexual Orientation Straight 05/14/2022 10 :19 AM EDT documented as of this encounter Plan of Treatment Not on file documented as of this encounter Procedures Procedure Name Priority Date/Time Associated Diagnosis Comments XR RIBS 3 VIEWS LEFT W CHEST Routine 05/10/2025 4:00 PM EDT documented in this encounter Results * XR Ribs 3 Views Left w/ Chest (05/10/2025 4:00 PM EDT) Anatomical Region Laterality Modality Radiographic Cecile ging 05/10/2025 4:00 PM EDT Narrative 05/10/2025 4:26 PM EDT [address] [address] XRay Report Signed Patient: Tripp Hoskins MR#: [id number] : 2000 Acct:[id number] Age/Sex: 25 / M ADM Date: 05/10/25 Loc: HO.ED Attending Dr: Ordering Physician: Bonny Dejesus Date of Service: 05/10/25 Procedure(s): XR ribs LT min 3V w CXR1V Accession Number(s): [id number] cc: Bonny Dejesus; Name,Kaveh GUERRERO Reason for [...] Gordon Cortes MD 05/10/2025 04:23 PM EDT Dictated By: Gordon Cortes MD Signed By: <Electronically signed by Gordon Cortes MD in OV> 05/10/25 1623 DD/ 1600 TD/TT: 05/10/25 1610 Ep Tech: [facility] Procedure Note Donotuseinterpreter, Image - 05/10/2025 [place] [address] XRay Report Signed Patient: Bernardo Hoskins#: [id number] : 2000Acct:[id number] Age/Sex: 25 / MADM Date: 05/10/25 Loc: HO.ED Attending Dr: Ordering Physician: Bonny Dejesus Date of Service: 05/10/25 Procedure(s): XR ribs LT min 3V w CXR1V Accession Number(s): [id number] cc: Bonny Dejesus; Name,Kaveh GUERRERO Reason for [...] 05/10/25 1623 DD/ 1600 TD/TT: 05/10/25 1610 Ep Tech: AMADO [facility] External Provider IMG XR PROCEDURES Final Result documented in this encounter Visit Diagnoses Not on filedocumented in this encounter Care Teams Manager Small Business Relationship Specialty Start Date End Date Afia Littlejohn DO [address] [place] [phone] PCP - General Family Medicine 03/24/24 documented as of this encounter
== END 2025-05-10 18:01 | disposition home or self-care (01) ==
PROVIDERS: Emergency Provider Emergency Medicine; PCP Internal Medicine Geriatric Medicine
DX: R07.89 Other chest pain (principal)
CPT/HCPCS: 71101; 99282; 99283

== ENCOUNTER → 2025-05-10 15:57 | Outpatient (BNV) | payer SELFPAY | PROVIDERS: PCP Internal Medicine Geriatric Medicine; Visit Provider Radiology Diagnostic Radiology | DX: R07.89 Other chest pain (principal) | CPT/HCPCS: 71101 ==